=== PATIENT | male | born 2000 | race American Indian/Alaskan Native ===

== ENCOUNTER 2018-06-28 03:06 | Emergency (ER) | payer MEDICAID ==
[2018-06-28 03:06] VITALS: BMI 22.9
[2018-06-28 03:20] VITALS: RESP 18; TEMP 98.1
--- NOTE | 2018-06-28 03:38 | ED PDOC ---
Arrival/HPI - General Chief Complaint: Abdominal Pain Time Seen by Provider: 06/28/18 03:08 Historian: Patient - History of Present Illness Narrative History of Present Illness (Text): 06/28/18 03:38 18 year old male, with no significant past medical history, presents to the emergency department complaining of nausea, vomiting, and diarrhea associated with intermittent abdominal cramps for the past couple days. Patient denies any recent travel outside the [place]. Patient's appetite is intact. Patient denies any fever, chills, chest pain, shortness of breath, urinary symptoms, back pain, neck pain, headache, dizziness, or any other complaints. Time/Duration: Other (couple days) Symptom Onset: Gradual Symptom Course: Intermittent Activities at Onset: Light Context: Home Past Medical History - Provider Review Nursing Documentation Reviewed: Yes - Travel History Have you recently traveled outside [place] w/in the past 3 mons?: No - Past History Past History: No Previous - Tetanus Immunization Tetanus Immunization: Up to Date - Psychiatric Hx Substance Use: No Family/Social History - Physician Review Nursing Documentation Reviewed: Yes Family/Social History: No Known Family HX Smoking Status: Never Smoked Hx Alcohol Use: No Hx Substance Use: No Allergies/Home Meds Allergies/Adverse Reactions: Allergies No Known Allergies Allergy (Verified 12/19/16 09:33) Review of Systems - Physician Review All systems were reviewed & negative as marked: Yes - Review of Systems Constitutional: absent: Fevers, Other (Chills) Respiratory: absent: SOB Cardiovascular: absent: Chest Pain Gastrointestinal: Abdominal Pain, Diarrhea, Nausea, Vomiting Musculoskeletal: absent: Back Pain, Neck Pain Neurological: absent: Headache, Dizziness Physical Exam Vital Signs Reviewed: Yes Vital Signs Temp Pulse Resp BP Pulse Ox 06/28/18 06:02 80 18 116/74 100 06/28/18 03:19 98.1 F 66 18 123/79 98 Temperature: Afebrile Blood Pressure: Normal Pulse: Regular Respiratory Rate: Normal Appearance: Positive for: Well-Appearing, Non-Toxic, Comfortable Pain Distress: None Mental Status: Positive for: Alert and Oriented X 3 - Systems Exam Head: Present: Atraumatic, Normocephalic Pupils: Present: PERRL Extroacular Muscles: Present: EOMI Conjunctiva: Present: Normal Mouth: Present: Moist Mucous Membranes Neck: Present: Normal Range of Motion Respiratory/Chest: Present: Clear to Auscultation, Good Air Exchange. No: Respiratory Distress, Accessory Muscle Use Cardiovascular: Present: Regular Rate and Rhythm, Normal S1, S2. No: Murmurs Abdomen: Present: Normal Bowel Sounds. No: Tenderness, Distention, Peritoneal Signs Back: Present: Normal Inspection Upper Extremity: Present: Normal Inspection. No: Cyanosis, Edema Lower Extremity: Present: Normal Inspection. No: Edema Neurological: Present: GCS=15, CN II-XII Intact, Speech Normal Skin: Present: Warm, Dry, Normal Color. No: Rashes Psychiatric: Present: Alert, Oriented x 3, Normal Insight, Normal Concentration Medical Decision Making ED Course and Treatment: 06/28/18 03:38 Impression: 18 year old male presents complaining of nausea, vomiting, and diarrhea associated with intermittent abdominal cramps for the past couple days. Plan: -- Labs -- IV Fluids, Toradol, Zofran Inj -- Reassess and disposition Progress Notes: 06/28/18 05:54 On re-evaluation, patient feels better and is in no acute distress. I have discussed the results and plan with the patient, who expresses understanding. Patient in agreement with plan to be discharged home. Patient is stable for discharge. Patient was instructed to follow up with physician or return if symptoms worsen or new concerning symptoms arise. - Lab Interpretations Lab Results: 06/28/18 04:20 06/28/18 04:20 Lab Results 06/28/18 04:20: WBC 8.1, RBC 5.14, Hgb 15.2, Hct 44.2, MCV 86.0, MCH 29.6, MCHC 34.4, RDW 12.2, Plt Count 198, MPV 9.9 06/28/18 04:20: Sodium 144, Potassium 4.6, Chloride 102, Carbon Dioxide 31, Anion Gap 16, BUN 12, Creatinine 1.0, Est GFR ( Amer) > 60, Est GFR (Non- Af Amer) > 60, Random Glucose 86, Calcium 9.9, Total Bilirubin 0.5, AST 32, ALT 28, Alkaline Phosphatase 50, Total Protein 8.0, Albumin 4.6, Globulin 3.4, Albumin/Globulin Ratio 1.3, Lipase 79 I have reviewed the lab results: Yes - Medication Orders Current Medication Orders: Discontinued Medications Sodium Chloride (Sodium Chloride 0.9%) 1,000 mls @ 999 mls/hr IV .Q1H1M STA Stop: 06/28/18 05:10 Last Admin: 06/28/18 04:25 Dose: 999 mls/hr eMAR Start Stop Document 06/28/18 04:25 CNR (Rec: 06/28/18 04:26 CNR [id number]) Intravenous Solution Start Date 06/28/18 Start Time 04:26 End Date 06/28/18 End time 05:26 Total Infusion Time 60 Ketorolac Tromethamine (Toradol) 30 mg IVP ONCE ONE Stop: 06/28/18 04:11 Last Admin: 06/28/18 04:26 Dose: 30 mg MAR Pain Assessment Document 06/28/18 04:26 CNR (Rec: 06/28/18 04:26 CNR [id number]) Pain Reassessment Is this a pain reassessment? No IVP Administration Document 06/28/18 04:26 CNR (Rec: 06/28/18 04:26 CNR [id number]) Charges for Administration # of IVP Administrations 1 Ondansetron HCl (Zofran Inj) 4 mg IVP ONCE ONE Stop: 06/28/18 04:11 Last Admin: 06/28/18 04:26 Dose: 4 mg IVP Administration Document 06/28/18 04:26 CNR (Rec: 06/28/18 04:26 CNR [id number]) Charges for Administration # of IVP Administrations 1 - Scribe Statement The provider has reviewed the documentation as recorded by the Niyah Menard Provider [email or web address] Attestation: All medical record entries made by the Niyah were at my direction and personally dictated by me. I have reviewed the chart and agree that the record accurately reflects my personal performance of the history, physical exam, medical decision making, and the department course for this patient. I have also personally directed, reviewed, and agree with the discharge instructions and disposition. Disposition/Present on Arrival - Present on Arrival Any Indicators Present on Arrival: No History of DVT/PE: No History of Uncontrolled Diabetes: No Urinary Catheter: No History of Decub. Ulcer: No History Surgical Site Infection Following: None - Disposition Have Diagnosis and Disposition been Completed?: Yes Diagnosis: Gastroenteritis Disposition: HOME/ ROUTINE Disposition Time: 05:51 Patient Plan: Discharge Condition: GOOD Discharge Instructions (ExitCare): Gastroenteritis (ED) Additional Instructions: Drink frequent small amounts of liquids at a time/advance diet slowly as tolerated/medication as prescribed/follow up with your doctor this week Prescriptions: Phenobarb/Hyoscy/Atropine/Scop [ Tablet] 16.2 mg PO Q6 PRN #12 tablet PRN Reason: Dyspepsia Ondansetron [Zofran Odt] 4 mg PO Q6 #12 odt Forms: [employer] (Armenian)
[2018-06-28] MEDS ORDERED: Sodium Chloride 0.9% 1,000 ML IV STA (04:10)
[2018-06-28 04:41] LABS: HEMOGLOBIN 15.2 g/dL (14.0-18.0); MEAN CORPUSCULAR HEMOGLOBIN 29.6 pg (25.0-35.0); MEAN CORPUSCULAR HGB CONC 34.4 g/dl (31.0-37.0); MEAN PLATELET VOLUME 9.9 fl (7.0-11.0); RBC 5.14 10^6/uL (3.5-6.1); RED CELL DISTRIBUTION WIDTH 12.2 % (11.5-14.5); WHITE BLOOD COUNT 8.1 10^3/ul (4.5-11.0)
[2018-06-28 04:42] LABS: ALB/GLOB RATIO 1.3 (1.1-1.8); ALBUMIN 4.6 g/dL (3.0-4.8); ALT/SGPT 28 U/L (7-56); AST/SGOT 32 U/L (17-59); BLOOD UREA NITROGEN 12 mg/dL (7-21); CALCIUM 9.9 mg/dL (8.4-10.5); GFR NON-AFRICAN AMERICAN > 60; LIPASE 79 U/L (23-300)
[2018-06-28 06:03] VITALS: BP 116/74; PULSE 80; O2SAT 100
== END 2018-06-28 06:02 | disposition home or self-care (01) ==
LOC: ED 03:06
DX: K52.9 Noninfective gastroenteritis and colitis, unspecified (principal)
CPT/HCPCS: 80053; 83690; 85027; 96361; 96374; 96375; 99284; J1885; J2405; J7030

== ENCOUNTER 2019-02-21 21:11 | Emergency (ER) | payer MEDICAID | END 2019-02-21 22:32 | disposition home or self-care (01) | LOC: ED 21:11 ==